=== PATIENT | female | born 1955 | race Caucasian/White ===

== ENCOUNTER 2022-08-27 08:59 | Outpatient (REF) | payer MEDICARE, SELFPAY ==
--- NOTE | 2022-11-09 13:42 | MHC.AU.MED ---
Medical Clearance for Hearing Instrumentation Date: 11/09/22 Patient Name: Shraddha Yoon Date of : 1955 Primary Care Provider: Referring Provider: Krystal Ambriz NP We have seen your patient on 11/09/22 and have determined that they are a candidate for amplification (See accompanying report). Specifically, they would benefit from: Hearing aid use in both ears There is a statute that addresses Medical Evaluation Requirements prior to fitting a patient with a hearing aid. According to [place] statute 265 CMR:6.03(1), (a) General. Except as provided in 265 CMR 6.03(1)(b), a production tester shall not sell a hearing aid unless the prospective user has presented to the production tester a written statement signed by a licensed physician that states that the patient's hearing loss has been medically evaluated and the patient may be considered a candidate for a hearing aid. The medical evaluation must have taken place within the preceding six months. Please note: Due to the [place] Statute referenced above, we cannot accept a signature other than that of a licensed physician. SPECIALIST PHYSICIANS and PA signatures cannot be accepted. I am in agreement with the above recommendation. There is no medical contraindication for hearing instrumentation. Physician Signature Date Physician Name (Printed)
== END 2022-08-27 09:00 | disposition home or self-care (01) ==
LOC: HO.SH 08:59
PROVIDERS: Visit Provider Nurse Practitioner Family
DX: Z01.118 Encounter for examination of ears and hearing with other abnormal findings (principal); H90.6 Mixed conductive and sensorineural hearing loss, bilateral; H90.12 Conductive hearing loss, unilateral, left ear, with unrestricted hearing on the contralateral side
CPT/HCPCS: 92557; 92567; 92588

== ENCOUNTER 2022-11-09 13:18 | Outpatient (REF) | payer SELFPAY ==
--- NOTE | 2022-11-09 14:04 | MHC.AU.HFU ---
Hearing Instrument Follow-Up- Binaural Date of Visit: 11/09/22 Follow-Up Summary: Patient arrives today to discuss [id number]-vqk-[id number] hearing aids after medical consultation with her ENT in [place]. ENT saw nothing on Otoscopy and hearing test results from 08/2022; however, advised MRI due to the configuration of the loss. Patient is very hesitant to get an MRI due to having an implanted device. Patient would like to pursue [id number] device as she does not want to purchase a traditional aid in case due to cost and if she will want to wear. Provided resource information such as [employer], [employer], and [employer]. Advised her to contact insurance to determine if any [place] benefit and providers covered. If patient decides to pursue from this office, gave overview of non-refundable charges and examples of hearing aid costs and services available. She will need medical clearance from with ENT or PCP and a new audiologic evaluation will be necessary in after 02/25/2023 Diagnosis Code(s): Primary Diagnosis: H90.6 Mixed Hearing Loss, Bilateral Secondary Diagnosis: H93.12 Tinnitus, Left Ear [place] Non-Quantity Charges: HANC: NonBillable Event Signature:Provider: Keegan Hahn, MAMTA-A
== END 2022-11-09 13:19 | disposition home or self-care (01) ==
LOC: HO.HAP 13:18
PROVIDERS: Visit Provider Nurse Practitioner Family
DX: Z13.89 Encounter for screening for other disorder (principal)